=== PATIENT | male | born 1955 | race Caucasian/White ===

== ENCOUNTER 2020-07-03 09:18 | Outpatient (REF) | payer BC, SELFPAY ==
[2020-07-03 10:09] LABS: MANUAL DIFF FLAG NO
[2020-07-03 10:11] LABS: Basophils Absolute Auto 0.1 X10*3/uL (0.0-0.2); Basophils Percent Auto 0.9 % (0-2); Eosinophils Absolute Auto 0.2 X10*3/uL (0.0-0.4); Eosinophils Percent Auto 2.8 % (0-4); Hematocrit 41.3 % (42-52); Hemoglobin 14.1 g/dl (14.0-18.0); Imm Gran Abs Auto 0.03 X10*3/uL (0.00-0.03); Imm Gran Pct Auto 0.4 % (0.0-0.4); Lymphocytes Absolute Auto 1.6 X10*3/uL (1.2-4.9); Lymphocytes Percent Auto 23.7 % (20-40); Mean Corpuscular HGB Conc 34.1 g/dl (31.0-36.0); Mean Corpuscular Hemoglobin 32.9 pg (27.0-33.0); Mean Corpuscular Volume 96.5 fL (80-98); Mean Platelet Volume 8.9 fL (9.4-12.4); Monocytes Absolute Auto 0.5 X10*3/uL (0.1-1.2); Monocytes Percent Auto 7.7 % (2-11); Neutrophils Absolute Auto 4.4 X10*3/uL (2.0-8.3); Neutrophils Percent Auto 64.5 % (45-73); Platelet Count 232 X10*3/uL (160-400); Red Blood Count 4.28 X10*6/uL (4.60-5.80); Red Cell Distribution Width 12.4 % (11.0-16.0); White Blood Count 6.8 X10*3/uL (4.8-10.8)
[2020-07-03 10:38] LABS: Alanine Aminotransferase 27 U/L (0-40); Albumin Level 4.2 g/dL (3.5-5.0); Alkaline Phosphatase 57 U/L (39-117); Anion Gap 10 (12-20); Aspartate Amino Transferase 20 U/L (5-37); Bilirubin Total 0.3 mg/dL (0.0-1.0); Blood Urea Nitrogen 25 mg/dL (9-16); Calcium 8.3 mg/dL (8.4-10.2); Carbon Dioxide 28 mmol/L (22-29); Chloride 106 mmol/L (96-108); Cholesterol 137 mg/dL; Estimated Glomerular Filt Rate > 60; Glucose Fasting 96 mg/dL (60-99); HDL Cholesterol 38 mg/dL; LDL Cholesterol Calculated 89 mg/dl; Potassium 4.4 mmol/l (3.3-5.1); Sodium 140 mmol/L (135-145); Total Protein 6.6 g/dL (6.5-8.0); Triglycerides 53 mg/dL
== END 2020-07-03 09:19 | disposition home or self-care (01) ==
LOC: HO.LAB 09:18
PROVIDERS: PCP Internal Medicine; Visit Provider Physician Assistant
DX: Z00.00 Encounter for general adult medical examination without abnormal findings (principal); Z13.6 Encounter for screening for cardiovascular disorders
CPT/HCPCS: 36415; 80053; 80061; 85025

== ENCOUNTER → 2020-10-29 13:16 | Outpatient (BNVA) | payer BC, SELFPAY | PROVIDERS: Visit Provider Urology ==

== ENCOUNTER 2020-11-19 10:36 | Outpatient (REF) | payer BC, SELFPAY ==
[2020-11-19 15:05] LABS: Prostate Specific Antigen 0.49 ng/mL (<0.05-4.0)
== END 2020-11-19 10:37 | disposition home or self-care (01) ==
LOC: HO.WFDLDS 10:36
PROVIDERS: Visit Provider Urology
DX: N13.8 Other obstructive and reflux uropathy (principal); N32.0 Bladder-neck obstruction; N40.1 Benign prostatic hyperplasia with lower urinary tract symptoms; Z12.5 Encounter for screening for malignant neoplasm of prostate
CPT/HCPCS: 36415; 84153

== ENCOUNTER 2021-06-27 09:20 | Outpatient (REF) | payer BC, SELFPAY ==
[2021-06-27 10:57] LABS: MANUAL DIFF FLAG NO
[2021-06-27 10:59] LABS: Basophils Absolute Auto 0.1 X10*3/uL (0.0-0.2); Basophils Percent Auto 0.9 % (0-2); Eosinophils Absolute Auto 0.1 X10*3/uL (0.0-0.4); Eosinophils Percent Auto 1.6 % (0-4); Hemoglobin 14.6 g/dl (14.0-18.0); Imm Gran Abs Auto 0.03 X10*3/uL (0.00-0.03); Imm Gran Pct Auto 0.5 % (0.0-0.4); Lymphocytes Absolute Auto 1.6 X10*3/uL (1.2-4.9); Lymphocytes Percent Auto 29.3 % (20-40); Mean Corpuscular Hemoglobin 32.7 pg (27.0-33.0); Mean Corpuscular Volume 96.4 fL (80.0-98.0); Mean Platelet Volume 9.7 fL (9.4-12.4); Monocytes Absolute Auto 0.3 X10*3/uL (0.1-1.2); Monocytes Percent Auto 6.2 % (2-11); Neutrophils Absolute Auto 3.38 x10*3/uL (2.0-8.3); Neutrophils Percent Auto 61.5 % (45-73); Platelet Count 234 X10*3/uL (160-400); Red Blood Count 4.46 X10*6/uL (4.60-5.80); Red Cell Distribution Width 12.5 % (11.0-16.0); White Blood Count 5.5 X10*3/uL (4.8-10.8)
[2021-06-27 11:16] LABS: Estimated Average Glucose 100 mg/dL; Hemoglobin A1c % 5.1 %
[2021-06-27 11:38] LABS: Alanine Aminotransferase 23 U/L (0-40); Albumin Level 4.2 g/dL (3.5-5.0); Alkaline Phosphatase 60 U/L (39-117); Anion Gap 12 (12-20); Aspartate Amino Transferase 18 U/L (5-37); Bilirubin Total 0.4 mg/dL (0.0-1.0); Blood Urea Nitrogen 10 mg/dL (9-16); C Reactive Protein 0.05 mg/dL (< or = 0.50); Calcium 8.8 mg/dL (8.4-10.2); Carbon Dioxide 24 mmol/L (22-29); Chloride 109 mmol/L (96-108); Cholesterol 126 mg/dL; Estimated Glomerular Filt Rate > 60; Glucose Fasting 110 mg/dL (60-99); HDL Cholesterol 40 mg/dL; LDL Cholesterol Calculated 69 mg/dl; Potassium 4.2 mmol/L (3.3-5.1); Sodium 141 mmol/L (135-145); Total Protein 6.8 g/dL (6.5-8.0); Triglycerides 87 mg/dL
[2021-06-27 11:46] LABS: Erythrocyte Sedimentation Rate 3 MM/HR (0-15)
[2021-06-27 11:51] LABS: Vitamin D 25-OH Total 27.3 ng/mL (>30)
[2021-06-27 12:02] LABS: Rheumatoid Factor < 15.0 IU/mL (<15.0)
[2021-06-27 12:14] LABS: Folate 9.3 ng/mL (> or = 4.0); Vitamin B12 412 pg/mL (200-900)
[2021-06-28 12:11] LABS: Anti Nuclear Antibody Screen NEGATIVE (NEGATIVE)
== END 2021-06-27 09:21 | disposition home or self-care (01) ==
LOC: HO.MANLDS 09:20
PROVIDERS: PCP Physician Assistant; Visit Provider Physician Assistant
DX: Z00.00 Encounter for general adult medical examination without abnormal findings (principal); G62.9 Polyneuropathy, unspecified
CPT/HCPCS: 36415; 80053; 80061; 82306; 82607; 82746; 83036; 84439; 84443; 85025; 85652; 86038; 86039; 86140; 86431

== ENCOUNTER 2021-12-31 08:34 | Outpatient (REF) | payer BC, SELFPAY ==
[2021-12-31 10:17] LABS: Prostate Specific Antigen 0.48 ng/mL (<0.05-4.0)
== END 2021-12-31 08:35 | disposition home or self-care (01) ==
LOC: HO.LAB 08:34
PROVIDERS: PCP Internal Medicine; Visit Provider Urology
DX: Z12.5 Encounter for screening for malignant neoplasm of prostate (principal); R35.1 Nocturia
CPT/HCPCS: 36415; 84153

== ENCOUNTER → 2022-01-06 14:13 | Outpatient (BNVA) | payer BC, SELFPAY | PROVIDERS: PCP Internal Medicine; Visit Provider Urology | DX: N32.0 Bladder-neck obstruction (principal); R39.12 Poor urinary stream | CPT/HCPCS: 51798 ==

== ENCOUNTER 2022-08-03 10:22 | Outpatient (REF) | payer BC, SELFPAY ==
--- NOTE | ~2022-08-03 | XR_ITS ---
EXAMINATION: XR SHOULDER, RIGHT CLINICAL INFORMATION: Right shoulder pain COMPARISON: None TECHNIQUE: Three views of the right shoulder. FINDINGS: No fracture or dislocation. The glenohumeral joint is aligned with prominent osteophytes present. The acromioclavicular joint is intact with mild hypertrophic degenerative change. The visualized lung is clear. The visualized ribs are intact. XR/XR shoulder RT min 2V IMPRESSION: Moderate degenerative changes of the right glenohumeral joint.
== END 2022-08-03 10:23 | disposition home or self-care (01) ==
LOC: HO.HOSX 10:22
PROVIDERS: Visit Provider Physician Assistant
DX: M19.011 Primary osteoarthritis, right shoulder (principal); S46.001A Unspecified injury of muscle(s) and tendon(s) of the rotator cuff of right shoulder, initial encounter
CPT/HCPCS: 20610; 73030; J1040

== ENCOUNTER 2022-08-04 07:00 | Outpatient (REF) | payer BC, SELFPAY ==
[2022-08-04 07:05] LABS: MANUAL DIFF FLAG NO
[2022-08-04 07:25] LABS: Basophils Percent Auto 0.4 % (0-2); Eosinophils Absolute Auto 0.1 X10*3/uL (0.0-0.4); Eosinophils Percent Auto 0.6 % (0-4); Hematocrit 44.7 % (42.0-52.0); Hemoglobin 15.2 g/dl (14.0-18.0); Imm Gran Abs Auto 0.04 X10*3/uL (0.00-0.03); Imm Gran Pct Auto 0.4 % (0.0-0.4); Lymphocytes Absolute Auto 2.2 X10*3/uL (1.2-4.9); Lymphocytes Percent Auto 21.6 % (20-40); Mean Corpuscular Hemoglobin 32.1 pg (27.0-33.0); Mean Corpuscular Volume 94.3 fL (80.0-98.0); Monocytes Absolute Auto 0.7 X10*3/uL (0.1-1.2); Monocytes Percent Auto 6.9 % (2-11); Neutrophils Percent Auto 70.1 % (45-73); Platelet Count 270 X10*3/uL (160-400); Red Blood Count 4.74 X10*6/uL (4.60-5.80); Red Cell Distribution Width 12.4 % (11.0-16.0)
[2022-08-04 08:22] LABS: Alanine Aminotransferase 29 U/L (0-40); Albumin Level 4.3 g/dL (3.5-5.0); Alkaline Phosphatase 89 U/L (39-117); Anion Gap 12 (12-20); Aspartate Amino Transferase 22 U/L (5-37); Bilirubin Total 0.4 mg/dL (0.0-1.0); Blood Urea Nitrogen 16 mg/dL (9-16); Calcium 9.5 mg/dL (8.4-10.2); Carbon Dioxide 25 mmol/L (22-29); Chloride 108 mmol/L (96-108); Cholesterol 149 mg/dL; Estimated Glomerular Filt Rate > 60; Glucose Random 123 mg/dL (60-115); HDL Cholesterol 40 mg/dL; LDL Cholesterol Calculated 91 mg/dl; Potassium 4.7 mmol/L (3.3-5.1); Prostate Specific Antigen 0.58 ng/mL (<0.05-4.0); Sodium 140 mmol/L (135-145); Total Protein 6.9 g/dL (6.5-8.0); Triglycerides 91 mg/dL
== END 2022-08-04 07:01 | disposition home or self-care (01) ==
LOC: HO.LAB 07:00
PROVIDERS: PCP Internal Medicine; Visit Provider Physician Assistant
DX: Z00.00 Encounter for general adult medical examination without abnormal findings (principal); Z12.5 Encounter for screening for malignant neoplasm of prostate
CPT/HCPCS: 36415; 80053; 80061; 84153; 85025

== ENCOUNTER 2022-10-05 10:29 | Outpatient (REF) | payer MEDICARE, BC, SELFPAY ==
--- NOTE | ~2022-10-05 | MR_ITS ---
EXAMINATION: MR SHOULDER WITHOUT CONTRAST, RIGHT CLINICAL INFORMATION: Right shoulder pain, osteoarthritis. COMPARISON: Radiographs 08/03/2022. TECHNIQUE: MRI of the shoulder without contrast was performed on a high-field scanner. FINDINGS: ROTATOR CUFF: Supraspinatus tendinosis with a near complete insertional tear with the bulk of the tendon retracted 1.3 cm. There are some posteriormost fibers remaining intact, with mild, ill-defined undersurface partial tearing of the distal infraspinatus tendon. Subscapularis tendon is attenuated compatible with chronic undersurface partial tearing. No muscle atrophy or fatty infiltration. BICEPS: The biceps tendon is completely torn and retracted. CORACOACROMIAL ARCH: The undersurface of the acromion is curved with prominent subacromial spurring. Moderate acromioclavicular osteoarthritis with a joint effusion. LABRUM/CAPSULE: Superior labrum is blunted and diminutive. GLENOHUMERAL JOINT/MARROW: Degenerative spurring along the greater tuberosity with a prominent cyst posteriorly. Cartilage signal heterogeneity and mild surface irregularity along the medial aspect of the humeral head. Cartilage thinning and surface irregularity of the superior glenoid. There are prominent marginal osteophytes, particularly the inferomedial aspect of the humeral head and neck junction. Small joint effusion. MR/MR shoulder RT wo con IMPRESSION: 1. Near complete insertional tear of the supraspinatus tendon. 2. Mild ill-defined undersurface partial tearing of the distal infraspinatus tendon. 3. Chronic undersurface partial tearing of the subscapularis tendon. 4. Completely torn and retracted biceps tendon. 5. Prominent subacromial spur. 6. Moderate acromioclavicular and glenohumeral osteoarthritis.
== END 2022-10-05 10:30 | disposition home or self-care (01) ==
LOC: HO.MRI 10:29
PROVIDERS: Visit Provider Physician Assistant
DX: M19.011 Primary osteoarthritis, right shoulder (principal); S46.001A Unspecified injury of muscle(s) and tendon(s) of the rotator cuff of right shoulder, initial encounter
CPT/HCPCS: 73221

== ENCOUNTER → 2022-10-27 09:36 | Outpatient (BNVA) | payer BC, SELFPAY | PROVIDERS: PCP Internal Medicine; Visit Provider Orthopaedic Surgery | DX: M12.811 Other specific arthropathies, not elsewhere classified, right shoulder (principal) | CPT/HCPCS: 99212 ==

== ENCOUNTER → 2022-12-15 12:28 | Outpatient (BNVA) | payer BC, SELFPAY | PROVIDERS: PCP Internal Medicine; Visit Provider Physician Assistant | DX: Z13.89 Encounter for screening for other disorder (principal) ==

== ENCOUNTER 2022-12-20 07:26 | Day surgery (SDC) | payer BC, SELFPAY ==
[2022-12-18 10:54] VITALS: BMI 31.4
--- NOTE | 2022-12-19 08:33 | P.CONAN_ITS ---
Documented by User: Crissy Bourne NP 12/19/22 08:34 HPI - Anesthesia Eval Consult details Narrative: 67yo M for Right Arthroscopic Rotator Cuff Repair PMFSH Active Problems Active Problems: All Active Problems (Updated 12/18/22 @ 10:47 by Aydee Garcia RN) Bladder outlet obstruction (Acute) Arthritis of right shoulder region (Acute) Rotator cuff injury (Acute) Rotator cuff arthropathy of right shoulder (Acute) Weak urinary stream (Acute) Nocturia (Acute) Past Medical History Medical History (Updated 12/18/22 @ 10:47 by Aydee Garcia, CINTIA) History of BPH Nocturia ROM on CPAP PONV (postoperative nausea and vomiting) Recurrent right inguinal hernia Weak urinary stream Family History Family History Father Heart disease Mother Chronic obstructive pulmonary disease Surgical History Surgical History (Updated 12/18/22 @ 10:12 by Aydee Garcia RN) History of arthroscopy of left knee History of hernia repair History of tonsillectomy History of total left knee replacement (TKR) History of total right knee replacement (TKR) Hx of colonoscopy Social History Social History Are you a primary neonatal intensive care nurse to a significant other at home: No Do you presently have visiting nurse or other home services: No Are you DNR?: No Advance Directives: No Advance Directives Information Provided: Yes Advance Directives on File: No Advance Directives Date on File: 11/08/14 Recently lost weight without trying: No Nutrition Risks: No Nutritional Risk 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 Allergies Allergy/AdvReac Type Severity Reaction Status Date / Time No Known Allergies Allergy Verified 12/18/22 10:47 [No Known Allergies*] Exam Exam Date and Time: December 19, 2022 0833 Height,Weight and Vital Signs: Height 6 ft 2 in Weight 111.13 kg Pertinent Lab Results Pertinent Lab Results: Laboratory Tests 08/04/22 08/04/22 07:04 07:04 WBC 10.0 Hgb 15.2 Hct 44.7 Plt Count 270 Sodium 140 Potassium 4.7 Chloride 108 Carbon Dioxide 25 BUN 16 Creatinine 0.95 Assessment and Plan Assessment Anesthesia Assessment: Chart Reviewed Documented by User: Aba Alvarado MD 12/20/22 07:31 [facility] Past Medical History Medical History (Updated 12/18/22 @ 10:47 by Aydee Garcia RN) History of BPH Nocturia ROM on CPAP PONV (postoperative nausea and vomiting) Recurrent right inguinal hernia Weak urinary stream Family History Family History Father Heart disease Mother Chronic obstructive pulmonary disease Family history of problems with anesthesia: No Surgical History Surgical History (Updated 12/18/22 @ 10:12 by Aydee Garcia RN) History of arthroscopy of left knee History of hernia repair History of tonsillectomy History of total left knee replacement (TKR) History of total right knee replacement (TKR) Hx of colonoscopy History of Problems with Anesthesia: No Social History Social History Are you a primary neonatal intensive care nurse to a significant other at home: No Do you presently have visiting nurse or other home services: No Are you DNR?: No Advance Directives: No Advance Directives Information Provided: Yes Advance Directives on File: No Advance Directives Date on File: 11/08/14 Recently lost weight without trying: No Nutrition Risks: No Nutritional Risk 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 Allergies Allergy/AdvReac Type Severity Reaction Status Date / Time No Known Allergies Allergy Verified 12/18/22 10:47 [No Known Allergies*] Exam Airway Mallampati Class: II TM Dist: >3cm Neck ROM: Limited Heart: rrr Lungs: cta Assessment and Plan Assessment Anesthesia Assessment: Anesthesia Plan Discussed Final Anesthetic Review Family History of Problems with Anesthesia: No History of Problems with Anesthesia: No NPO: Yes ASA Class: II Final Preanesthetic Review: No Changes in Pt Med Stat, Meds/Allgs Chart Reviewed, Consent Obtained/Reviewed and Anes Risks/Benef Reviewed Patient Risk: Intermediate Procedure Risk: Intermediate Anesthetic Plan Anesthetic Plan: GA and Regional Block Disposition: Standard PACU
[2022-12-20] VITALS (9 sets, daily range): BP systolic 142–170; BP diastolic 75–88; PULSE 51–63; RESP 12–18; TEMP 36.1–36.4; O2SAT 93–99; BMI 31.4
[2022-12-20] MEDS: Lactated Ringers 1,000 ML 100 ML IVCONT (08:14)
[2022-12-20] MEDS: Scopolamine 1.5 MG PATCH.TD.3 TRANSDERMA (08:16)
--- NOTE | 2022-12-20 09:28 | MHC.SHP ---
Pre-Procedural Eval Section A Date of Service: 12/20/22 The patient is an INPATIENT: No Changes since office visit: No Cold of Flu in the past 2 weeks, No New Medical Problems, No Changes in Medication and No Patient answered all questions The History & Physical has been completed within 30 days and I have reviewed it.: Yes Section B Chief Complaint: Chronic postrheumatic arthropathy [Jaccoud], right Allergies: Allergies Allergy/AdvReac Type Severity Reaction Status Date / Time No Known Allergies Allergy Verified 12/18/22 10:47 [No Known Allergies*] Plan I have reviewed the history and physical and performed a pertinent physical examination on my patient. No changes have occurred unless specified. Time Spent With Patient Time: Total time managing care of this patient today ____ minutes.
--- NOTE | 2022-12-20 11:45 | P.BOP_ITS ---
Brief Operative Note Date of Service: 12/20/22 Pre-op diagnosis: right shoulder RTC tear Post-op diagnosis: other (1) RTC repair 2) labral tear) Procedure: 1) RTC repair 2) DCE 3) Circumferential labral debridement 4) SAD Implants: Tavares and nephew 5.5 knotless x2 and helacoil double loaded medial row anchors x 2 Surgeon: Ric Dominguez MD Anesthesia: GETA and regional Was an Crm Marketing Executive used for this Procedure?: Yes Crm Marketing Executive: Crista Queen Estimated blood loss (mL): 25 IV fluids (mL): 1,100 Pathology: none sent Condition: stable Disposition: PACU
--- NOTE | 2022-12-26 09:05 | P.OP_ITS ---
Operative Note Operative Note Date of Service: 12/20/22 Narrative: Date of Service: 12/20/22 Pre-op diagnosis: right shoulder RTC tear Post-op diagnosis: other (1) RTC repair 2) labral tear) Procedure: 1) RTC repair 2) DCE 3) Circumferential labral debridement 4) SAD Implants: Tavares and nephew 5.5 knotless x2 and helacoil double loaded medial row anchors x 2 Surgeon: Ric Dominguez MD Anesthesia: GETA and regional Was an Marking Machine Operator used for this Procedure?: Yes Marking Machine Operator: Crista Queen Estimated blood loss (mL): 25 IV fluids (mL): 1,100 Pathology: none sent Condition: stable Disposition: PACU Procedure in detail: Patient was brought to the operating room and placed the the beach chair position. All bony prominences were well padded and the limb was prepped and draped in standard sterile fashion. A time out was called to identify proper site, proper procedure and proper surgeon. IV antibiotics per weight were administered. I began by making a posterolateral stab incision with a 15 blade. A blunt trochar was placed into the glenohumeral joint and I insufflated the carlos nt with saline and a 30 degree arthroscope was placed. I established an outside- in anterior portal just distal to the biceps tendon. I then began my inspection of the glenohumeral joint. There was an absent biceps and degenerative tearing of the labrum circumferentially with G2 change at the inferior glenoid without associated humeral head changes. There was a full thickness undersurface RTC tear. The subcapularis was partially intct with a high grade partial thickness tear of the proximal 50%. I debrided the loose cartilage of the glenoid and the degenerative labral tearing circumferentially. I thenreleased the subscapularis in all planes except inferior and then placed 2 suture tapes and brought these to a knotless 5.5 anchor just lateral to the bicipital groove. Prior to this I debrided the oinsertion site down to bleeding bone. The [id number] was repaired with the arm in IR. I then removed the trochar and entered the subacromial space. A direct lateral portal was then established and I performed a bursectomy. The cuff was then examined. There was a full thickness tear of the supra and infraspinatus with mild retraction but mobile. I placed two medial row double loaded anchors and then brought the suture tape through the medial cuff. I added two looped sutures at the anterior and posterior most aspect of the tear. I then debrided the bare area down to bleeding bone and, using a cross bridge configuration, brought three limbs to each of two lateral 5.0 anchors. This re-approximated the cuff anatomy near anatomically. I then performed a 5 mm subacromial decompression. A DCE was performed via the anterior portal. Once I was satisfied with the repair the final images were captured and I removed all instrumentation. Portals were closed with nylon. Patient was placed in an abduction sling, extubated and brought to the recovery room in stable condition. There were no known complications.
== END 2022-12-20 14:28 | disposition home or self-care (01) ==
LOC: HO.SSS 07:26
PROVIDERS: PCP Internal Medicine; Visit Provider Orthopaedic Surgery
PROC: (CPT 29827; principal; 2022-12-20 09:40)
DX: M12.011 Chronic postrheumatic arthropathy [Jaccoud], right shoulder (principal); M75.101 Unspecified rotator cuff tear or rupture of right shoulder, not specified as traumatic; M24.211 Disorder of ligament, right shoulder; G47.33 Obstructive sleep apnea (adult) (pediatric); Z99.89 Dependence on other enabling machines and devices; Z96.653 Presence of artificial knee joint, bilateral
CPT/HCPCS: 29827; 29826; 29823; C1713; J0171; J0690; J1100; J1885; J2405; J2550; J2795

== ENCOUNTER → 2022-12-25 09:06 | Outpatient (BNVA) | payer BC, SELFPAY | PROVIDERS: PCP Internal Medicine; Visit Provider Physician Assistant | DX: Z47.89 Encounter for other orthopedic aftercare (principal); Z98.890 Other specified postprocedural states | CPT/HCPCS: 99212 ==

== ENCOUNTER 2023-01-08 13:02 | Outpatient (REF) | payer BC, SELFPAY ==
[2023-01-08 15:33] LABS: Prostate Specific Antigen 0.75 ng/mL (<0.05-4.0)
== END 2023-01-08 13:03 | disposition home or self-care (01) ==
LOC: HO.LAB 13:02
PROVIDERS: PCP Internal Medicine; Visit Provider Urology
DX: Z12.5 Encounter for screening for malignant neoplasm of prostate (principal); N13.8 Other obstructive and reflux uropathy; N40.1 Benign prostatic hyperplasia with lower urinary tract symptoms; N32.0 Bladder-neck obstruction
CPT/HCPCS: 36415; 84153

== ENCOUNTER → 2023-01-16 10:37 | Outpatient (BNVA) | payer BC, SELFPAY | PROVIDERS: PCP Internal Medicine; Visit Provider Urology ==

== ENCOUNTER → 2023-01-29 11:03 | Outpatient (BNVA) | payer BC, SELFPAY | PROVIDERS: PCP Internal Medicine; Visit Provider Physician Assistant ==

== ENCOUNTER 2023-03-15 11:13 | Outpatient (AMB) | payer BC, SELFPAY ==
--- NOTE | 2023-03-15 11:18 | A.OFFVIS_ITS ---
Intake Vital Signs 03/15/23 11:20 Height 6 ft 2 in Intake Visit Reasons: OV- Rt RTC Repair 12/20/22 NE Intake Note: Ty is a 67 year old male who presents today with his for his post op appointment for his right RTC repair, 12/20/22 NE.Patient reports that he is doing well with no concerns, He is still working with physical therapy. Allergies No Known Allergies [No Known Allergies*] Allergy (Verified 01/29/23 11:18) HPI OV- Rt RTC Repair 12/20/22 NE HPI Details Ty is a 67 year old man who presents ~3 months S/P right RTC repair, DCE, SAD, & Circumferential labral debridement. He says he is doing well and denies any pain. He continues to work with PT He says he is returning to work on 03/19/23, at a [employer]. He will not be required to do any heavy lifting at work. [facility] Medical History History of BPH Nocturia ROM on CPAP PONV (postoperative nausea and vomiting) Recurrent right inguinal hernia Weak urinary stream Surgical History History of arthroscopy of left knee History of hernia repair History of tonsillectomy History of total left knee replacement (TKR) History of total right knee replacement (TKR) Hx of colonoscopy Family History Father Heart disease Mother Chronic obstructive pulmonary disease Social History Are you a primary health care aide to a significant other at home: No Do you presently have visiting nurse or other home services: No Advance Directives Date on File: 11/08/14 Current occupation: rt hand/ counter sales/ retails Review of Systems Const All systems reviewed & are unremarkable except as noted in HPI and below Physical Exam Const General: no acute distress and alert Orientation/consciousness: patient oriented x3 Neuro General: patient oriented x3 Extrem Other: Right Shoulder: 120 degrees combined overhead motion, limited Minimal pain Well-healed portals ER ~30 degrees - liftoff Psych Appearance: grossly normal Affect: normal affect Attitude: cooperative Assessment & Plan Assessment & Plan (1) S/P right rotator cuff repair: Comment: Right shoulder rotator cuff repair with circumferential labral debridement, DCE, and SAD; 12/20/2022 NE Code(s): Z98.890 - Other specified postprocedural states Plan: This is a 67 year old man S/P right subscapularis & superior cuff repair, DCE, SAD, & Circumferential labral debridement, DOS: 12/20/22. He is doing well, within expectation, and denies any pain. He continues to work with PT and perform at-home exercises. I recommend he continue with his home exercises and avoid any heavy lifting activities. He will follow up in 3 months. Plan Scribed for Ric Dominguez MD by Ramon Pelletier, medical office receptionist assistant, on 03/15/23 at 11:25 AM, EST. Coding Level of Care Code Global (12824) Diagnoses S/P right rotator cuff repair Z98.890
== END 2023-03-15 11:33 | disposition home or self-care (01) ==
PROVIDERS: PCP Internal Medicine; Visit Provider Orthopaedic Surgery
DX: Z98.890 Other specified postprocedural states (principal)
CPT/HCPCS: 99024

== ENCOUNTER → 2023-03-15 11:13 | Outpatient (BNVA) | payer BC, SELFPAY | PROVIDERS: PCP Internal Medicine; Visit Provider Orthopaedic Surgery ==

== ENCOUNTER 2023-03-22 16:00 | Outpatient (RCR) | payer BC, SELFPAY ==
--- NOTE | 2022-12-26 10:34 | MHC.PT.EP ---
[facility] [place] Office [place] Office [place] Office [address] Ashly Vasquez [address] [phone] F: [phone] F: [phone] F: [phone] F: [phone] Physical Therapy Plan of Care Date of Evaluation: Date of Surgery: 12/20/22 Diagnosis: Other specified post procedural states s/p R rotator cuff repair 12/20/22 Assessment: Pt is a pleasant 67yo M who presents to PT s/p R RTC repair with Dr. Dominguez on 12/20/22. He presents to PT with expected impairments of pain, decreased R shoulder ROM, decreased strength, and soft tissue restrictions. He is limited functionally by R UE movement including lifting, reaching, ADLs, and sleeping. He is an excellent candidate for skilled PT in order to address current impairments. He is recommended to be seen 2x/week for 12 weeks in order to progress per protocol to facilitate return to PLOF. Frequency and Duration: The patient will be seen 2x/week for 12 weeks Short Term Goals: Pt will be I with HEP to promote self management of symptoms Pt will improve R shoulder PROM flexion to 130 deg by week 3 per protocol Pt will achieve ER to 30 degrees at 45 deg ABD per protocol (specifically subscap protocol) by week 5 Food Safety Director Goals: Pt will achieve full ROM all planes of R shoulder by week 8 per protocol Pt will demonstrate ability to lift 1# object to shoulder height by week 11 per protocol Pt will achieve full ROM and strength throughout R shoulder by week 13 per protocol Treatment Plan: Modalities to reduce pain, spasms and effusion. Manual therapy to restore motion and function. Therapeutic exercise to improve strength and flexibility. Neuromuscular re-education for posture and balance. Therapeutic activities to return to functional activities of daily living. Electronically signed by: Faye Treviño, PT, DPT Please sign and return to therapist. Thank you for your referral.
--- NOTE | 2023-03-28 14:33 | MHC.PT.DC ---
[facility] [place] Office [place] Office [place] Office [address] Ashly Vasquez [address] [phone] F: [phone] F: [phone] F: [phone] F: [phone] Physical Therapy Discharge Report Diagnosis: Other specified post procedural states s/p R rotator cuff repair 12/20/22 Date of Surgery: 12/20/22 Date of Evaluation: 12/25/22 Date of Discharge: 03/28/23 Treatments to Date: 28 Cancellations to Date: No Shows to Date: Discharge Status: Achieved Goals Improved Function Independent with HEP Discharge Summary: Pt was seen for PT from 12/25/22-03/22/23. His last attended and scheduled appointment was 03/22/23. He made excellent progress since SOC and progressed well per protocols. He scored 6/130 on SPADI outcome measure at last session. He improved AROM all planes of R shoulder to WFL. He also continues to improve strength of all planes of R shoulder. He is I and extremely compliant with HEP. He is being D/C from skilled PT. Pt had no further questions or concerns for PT at last session. Electronically signed by: Faye Treviño, PT, DPT Please sign and return to therapist. Thank you for your referral.
== END 2023-03-28 14:34 | disposition home or self-care (01) ==
LOC: HO.PT 16:00
PROVIDERS: Visit Provider Physician Assistant
DX: Z98.890 Other specified postprocedural states (principal)
CPT/HCPCS: 97110; 97140; 97162; 97164; 97530

== ENCOUNTER 2023-06-11 14:47 | Outpatient (AMB) | payer OTHER, SELFPAY ==
--- NOTE | 2023-06-11 14:49 | A.OFFVIS_ITS ---
Intake Intake Visit Reasons: OV-Rt RTC Repair 12/20/22 NE-F/U Intake Note: Ty is a 67 year old male who presents today with his for a follow up for his right RTC repair, 12/20/22 NE. Patient reports minimal pain at this time. Allergies No Known Allergies [No Known Allergies*] Allergy (Verified 06/11/23 14:52) Medication List - Last Reconciled 06/11/23 by Alvina Ramos RN finasteride 5 mg PO DAILY 90 days oxycodone 5 mg PO Q4-6H PRN 7 days terazosin 10 mg PO BEDTIME 90 days HPI OV-Rt RTC Repair 12/20/22 NE-F/U HPI Details Ty is a 67 year old man who presents ~6 months S/P right RTC repair, DCE, SAD, & Circumferential labral debridement. He says he is doing well and has only minimal pain, which is tolerable. 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 [facility] Medical History PONV (postoperative nausea and vomiting) History of BPH ROM on CPAP Nocturia Weak urinary stream Recurrent right inguinal hernia Surgical History History of total left knee replacement (TKR) History of total right knee replacement (TKR) Hx of colonoscopy History of tonsillectomy History of arthroscopy of left knee History of hernia repair Family History Father Heart disease Mother Chronic obstructive pulmonary disease Social History Are you a primary critical care registered nurse to a significant other at home: No Do you presently have visiting nurse or other home services: No Advance Directives Date on File: 11/08/14 Current occupation: rt hand/ counter sales/ retails Review of Systems Const All systems reviewed & are unremarkable except as noted in HPI and below Physical Exam Const General: no acute distress and alert Orientation/consciousness: patient oriented x3 HEENT Head: Yes normocephalic and Yes atraumatic Eyes EOM: EOMs intact bilaterally Resp Effort & Inspection: normal respiratory effort and able to speak in complete sentences Cardio Jugular venous distension: no JVD Skin General skin exam: turgor normal Rashes: no rashes Neuro General: patient oriented x3 Extrem Other: Right Shoulder: 120 degrees combined overhead motion, limited Minimal pain Well-healed portals ER ~30 degrees - liftoff Psych Appearance: grossly normal Affect: normal affect Attitude: cooperative Assessment & Plan Assessment & Plan (1) S/P right rotator cuff repair: Comment: Right shoulder rotator cuff repair with circumferential labral debridement, DCE, and SAD; 12/20/2022 NE Code(s): Z98.890 - Other specified postprocedural states Plan: This is a 67 year old man S/P right subscapularis & superior cuff repair, DCE, SAD, & Circumferential labral debridement, DOS: 12/20/22. He is doing well, within expectation, and has only minimal pain, which is tolerable. He continues to perform at-home exercises and has completed his course of PT. I recommend he continue his activity as tolerated and avoid any heavy lifting. He will follow up should he have any concerns. Plan Scribed for Ric Dominguez MD by Ramon Pelletier, medical reimbursement specialist, on [ ] at [ ], EST. Coding Level of Care Code Est Pt Level 3 (81941) Diagnoses S/P right rotator cuff repair Z98.890
== END 2023-06-11 14:59 | disposition home or self-care (01) ==
PROVIDERS: PCP Internal Medicine; Visit Provider Orthopaedic Surgery
DX: M25.511 Pain in right shoulder (principal)
CPT/HCPCS: 99213

== ENCOUNTER → 2023-06-11 14:47 | Outpatient (BNVA) | payer OTHER, SELFPAY | PROVIDERS: PCP Internal Medicine; Visit Provider Orthopaedic Surgery ==

== ENCOUNTER 2024-01-10 13:22 | Outpatient (REF) | payer MEDICARE, SELFPAY ==
[2024-01-10 15:00] LABS: Prostate Specific Antigen 0.61 ng/mL (<0.05-4.0)
== END 2024-01-10 13:23 | disposition home or self-care (01) ==
LOC: HO.LAB 13:22
PROVIDERS: PCP Internal Medicine; Visit Provider Urology
DX: N32.0 Bladder-neck obstruction (principal); Z12.5 Encounter for screening for malignant neoplasm of prostate
CPT/HCPCS: 36415; 84153

== ENCOUNTER 2024-01-16 09:11 | Outpatient (AMB) | payer BC, SELFPAY ==
--- NOTE | 2024-01-16 09:13 | A.OFFVIS_ITS ---
Intake Visit Reasons: 1Y PSA(set) Intake Note: Patient presents today for a follow-up on PSA: Meds- Finasteride & Terazosin Allergies to Antibiotic- No Known Allergies Blood Thinner- None Quick Mixer Operator Required: No Accompanied by: Self / Same As Patient Allergies No Known Allergies [No Known Allergies*] Allergy (Verified 01/16/24 09:14) HPI Comments Details: Ty is a pleasant male. He is a patient of Dr Cruz. He seen for the following urologic conditions - lower urinary tract symptoms Yearly evaluation Continues to remain on combination therapy PSA low Nocturia x1 Try reduction to terazosin 5 mg May also back off finasteride to Sunday, Sunday, Sunday Twelve month follow-up Lower urinary tract symptoms On combination therapy terazosin 10 mg and finasteride 5 mg Good response Nocturia down from 3 to 4 to 1 Happy with stream Prior therapy includes combination terazosin 10 mg and finasteride 5 mg PSA 2018 1.2, 01/15 0.5, 01/16 0.75, 01/17 0.61 Plan to review in 1 year and repeat PSA [facility] Medical History PONV (postoperative nausea and vomiting) History of BPH ROM on CPAP Nocturia Weak urinary stream Recurrent right inguinal hernia Surgical History History of total left knee replacement (TKR) History of total right knee replacement (TKR) Hx of colonoscopy History of tonsillectomy History of arthroscopy of left knee History of hernia repair Family History Father Heart disease Mother Chronic obstructive pulmonary disease Social History Are you a primary care professional to a significant other at home: No Do you presently have visiting nurse or other home services: No Advance Directives Date on File: 11/08/14 Current occupation: rt hand/ counter sales/ retails Review of Systems Const Denies chills and Denies fever(s) Card Reports no additional complaints and Denies syncope Resp Denies cough GI Denies abdominal pain and Denies heartburn Reports as per HPI and Denies change in libido Neuro Denies syncope Psych Denies change in libido Endo Denies change in libido Physical Exam Const General: cooperative, healthy appearing, comfortable and no acute distress Orientation/consciousness: patient oriented x3 HEENT Face and sinus: Yes normal facial exam Mouth: moist mucous membranes Neck Neck: Yes normal visual inspection, Yes full ROM and Yes trachea midline Chest Chest palpation & inspection: normal inspection of the chest Resp Effort & Inspection: normal respiratory effort, able to speak in complete sentences and no respiratory distress GI Inspection: Yes normal to inspection Back/Spine/Pelvis Cervical Spine: normal cervical lordosis Thoracic/Lumbar Spine: thoracic and lumbar spine normal to inspection Skin General skin exam: no rashes or lesions noted Neuro General: patient oriented x3, gait normal, tone normal and moves all extremities Extrem General: Yes normal to inspection and Yes capillary refill normal Assessment & Plan Assessment & Plan (1) Bladder outlet obstruction: Code(s): N32.0 - Bladder-neck obstruction Category: Medical (2) Weak urinary stream: Code(s): R39.12 - Poor urinary stream Category: Medical (3) Nocturia: Code(s): R35.1 - Nocturia Category: Medical Plan Twelve month follow-up PVR and AUA score Medications: New terazosin 5 mg PO BEDTIME 30 caps 1RF 30 days N40.1 - Benign prostatic hyperplasia with lower urinary tract symptoms, R35.0 - Frequency of micturition, R39.12 - Poor urinary stream Patient Instructions: Imaging studies, laboratory and physical exam results were discussed and reviewed in detail. No major barriers to patient understanding were identified. An opportunity to ask questions regarding the treatment plan was provided. All questions were answered. The patient expressed understanding and agreement with the above treatment plan. The patient is aware they should contact our office by phone for worsening of their current condition or the appearance of new urologic symptoms. Compliance is encouraged with any medications and followup testing that is ordered. It is a privilege to participate in the urologic care of your patient. If you have any questions or concerns regarding treatment for the above conditions, or other urologic issues, please do not hesitate to contact me. The office telephone contact is [phone]. This note is constructed using voice recognition software. While every effort has been made to ensure accuracy stone sawyer errors may have been included. Yours sincerely, Dr Jony Umana MD, [facility] - Urology Providers of Expert, Compassionate Care for the Genitourinary System Coding Level of Care Code Est Pt Level 3 (24033) Diagnoses Bladder outlet obstruction N32.0 Weak urinary stream R39.12 Nocturia R35.1
== END 2024-01-16 09:28 | disposition home or self-care (01) ==
PROVIDERS: PCP Internal Medicine; Visit Provider Urology
DX: N32.0 Bladder-neck obstruction (principal); R39.12 Poor urinary stream; R35.1 Nocturia
CPT/HCPCS: 99213

== ENCOUNTER → 2024-01-16 09:11 | Outpatient (BNVA) | payer BC, SELFPAY | PROVIDERS: Visit Provider Urology | DX: N40.1 Benign prostatic hyperplasia with lower urinary tract symptoms (principal); N13.8 Other obstructive and reflux uropathy; R39.12 Poor urinary stream; R35.1 Nocturia | CPT/HCPCS: 99212 ==

== ENCOUNTER 2024-06-27 07:26 | Day surgery (SDC) | payer MEDICARE, SELFPAY ==
[2024-06-25 13:58] VITALS: BMI 34.3
[2024-06-27 07:55] VITALS: BMI 33.5
[2024-06-27 08:00] VITALS: BP 139/89; PULSE 92; RESP 16; TEMP 36.8; O2SAT 97
[2024-06-27] MEDS: Lactated Ringers 1,000 ML 80 ML IVCONT (08:23)
--- NOTE | 2024-06-27 08:41 | HO.ANESPROP2 ---
HPI - Anesthesia Eval Consult details Narrative: 68 yo M presenting for colonoscopy. Hx of PONV. PMFSH Active Problems Active Problems: All Active Problems S/P right rotator cuff repair (Acute) Rotator cuff arthropathy of right shoulder (Acute) Rotator cuff injury (Acute) Arthritis of right shoulder region (Acute) Bladder outlet obstruction (Acute) Weak urinary stream (Acute) Nocturia (Acute) Past Medical History Medical History (Updated 06/25/24 @ 13:55 by Jazzy Iniguez, RN) BPH (benign prostatic hyperplasia) PONV (postoperative nausea and vomiting) ROM on CPAP Nocturia Weak urinary stream Family History Family History Father Heart disease Mother Chronic obstructive pulmonary disease Family history of problems with anesthesia: No Surgical History Surgical History (Updated 06/25/24 @ 13:54 by Jazzy Iniguez RN) Hx of rotator cuff surgery History of total left knee replacement (TKR) History of total right knee replacement (TKR) Hx of colonoscopy History of tonsillectomy History of arthroscopy of left knee History of hernia repair History of Problems with Anesthesia: Yes (PONV) Social History Social History Are you a primary respiratory care instructor to a significant other at home: No Do you presently have visiting nurse or other home services: No Patient Tobacco Use Status: Never used Tobacco Use of substances other than those prescribed or required for medical reasons: No Are you DNR?: No Advance Directives: No Advance Directives Information Provided: Yes Advance Directives Date on File: 11/08/14 Recently lost weight without trying: No Nutrition Risks: No Nutritional Risk Poor oral hygiene: No 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 Allergies Allergy/AdvReac Type Severity Reaction Status Date / Time No Known Allergies Allergy Verified 01/16/24 09:14 [No Known Allergies*] Active Medications: Current Medications Lactated Ringer's (Lr) 1,000 mls @ 80 mls/hr IVCONT .[id number] [facility] Last Admin: 06/27/24 08:23 Dose: 80 mls/hr Sodium Biphosphate/Sodium Phosphate (Sodium Phosphate,Cochise-Dibasic 133 Ml Enema) 133 ml [place] ONCE PRN PRN Reason: Poor Colonoscopy Prep Results Exam Exam Date and Time: 06/27/24 0835 Height,Weight and Vital Signs: Height 6 ft 2 in Weight 118.501 kg Last Vital Signs Temp 98.2 F 06/27/24 08:00 Pulse 92 06/27/24 08:00 Resp 16 06/27/24 08:00 BP 139/89 06/27/24 08:00 Pulse Ox 97 06/27/24 08:00 O2 Del Method Room Air 06/27/24 08:00 Airway Mallampati Class: II TM Dist: <=3cm Neck ROM: Limited Loose/Missing/Broken Teeth: Yes (severeal missing teeth but nothing loose or broken) Heart: S1S2 Lungs: CTAB Assessment and Plan Assessment Anesthesia Assessment: Anesthesia Plan Discussed and Chart Reviewed Final Anesthetic Review Family History of Problems with Anesthesia: No History of Problems with Anesthesia: Yes (PONV) NPO: Yes ASA Class: II Final Preanesthetic Review: No Changes in Pt Med Stat, Meds/Allgs Chart Reviewed, Consent Obtained/Reviewed and Anes Risks/Benef Reviewed Patient Risk: Low Procedure Risk: Low Anesthetic Plan Anesthetic Plan: MAC: and Agree w/ Assess. and Plan Disposition: Standard PACU
[2024-06-27 09:55] VITALS: BP 103/69; PULSE 74; RESP 16; TEMP 36.1; O2SAT 96
--- NOTE | 2024-06-27 09:55 | PM.OP ---
Brief Operative Note Date of Service: 06/27/24 Pre-op diagnosis: Screening Post-op diagnosis: other (Diverticulosis) Procedure: Colonoscopy to the cecum and TI Surgeon: Thaddeus Dickinson MD Anesthesia: MAC Was an Monomer Recovery Operator used for this Procedure?: No Estimated blood loss (mL): 0 Pathology: none sent Condition: stable Disposition: PACU
[2024-06-27 10:10] VITALS: BP 132/81; PULSE 66; RESP 16; O2SAT 96
--- NOTE | 2024-06-27 10:21 | OP_ITS ---
DATE OF SERVICE: 06/27/2024 SURGEON: Thaddeus Dickinson MD INDICATIONS: The patient presents for evaluation of colorectal cancer screening and personal history of tubular adenoma of the colon. Full consent was obtained from him for this, including risks of bleeding and perforation. PREOPERATIVE DIAGNOSIS: POSTOPERATIVE DIAGNOSIS: PROCEDURE PERFORMED: Colonoscopy to cecum and terminal ileum. ESTIMATED BLOOD LOSS: COMPLICATIONS: ANESTHESIA: Monitored anesthesia care. ASSISTANTS: SPECIMENS: PREOPERATIVE DIAGNOSES: Colorectal cancer screening and personal history of tubular adenoma of the colon. POSTOPERATIVE DIAGNOSES: Colorectal cancer screening and personal history of tubular adenoma of the colon, mild sigmoid diverticulosis, and internal hemorrhoids. DESCRIPTION OF PROCEDURE: The patient was placed in the left lateral decubitus position. The digital rectal exam revealed no abnormalities. The Olympus videopediatric colonoscope was entered into the rectum and advanced easily to the cecum. Once in the cecum, I did identify normal-appearing cecal pouch with appendiceal orifice and a normal-appearing ileocecal valve. The terminal ileum was cannulated and appeared normal. Scope was withdrawn back in the colon. The entire cecum and ileocecal valve appeared normal. The scope was slowly withdrawn assessing all mucosal surfaces carefully. Preparation was excellent. I did not visualize any sign of polyps, colitis, nor angiodysplasia. There was a mild amount of sigmoid diverticulosis. In the rectum, scope was retroflexed visualizing internal hemorrhoids, but no other pathology. The rectal mucosa appeared normal. The scope was straightened and withdrawn from the patient. He tolerated the procedure well and was returned to recovery area in stable condition. IMPRESSION: 1. Diverticulosis. 2. Internal hemorrhoids. PLAN: I would recommend a repeat colonoscopy in 5 years for further screening. He will otherwise see me on a p.r.n. basis. This has been discussed with his . MD TREVOR Oakley/ALIVIA / [phone]
[2024-06-27 10:33] VITALS: BP 126/80; PULSE 79; RESP 18; TEMP 36.1; O2SAT 98
== END 2024-06-27 10:53 | disposition home or self-care (01) ==
PROVIDERS: PCP Internal Medicine; Visit Provider Internal Medicine
PROC: 0DJD8ZZ Inspection of Lower Intestinal Tract, Via Natural or Artificial Opening Endoscopic (ICD-10-PCS; CPT 45378; principal; 2024-06-27 08:40)
DX: Z12.11 Encounter for screening for malignant neoplasm of colon (principal); K57.30 Diverticulosis of large intestine without perforation or abscess without bleeding; Z86.0101 Personal history of adenomatous and serrated colon polyps; G47.30 Sleep apnea, unspecified; Z99.89 Dependence on other enabling machines and devices; K64.8 Other hemorrhoids
CPT/HCPCS: G0105; J2003; J2704

== ENCOUNTER 2024-07-22 08:43 | Outpatient (REF) | payer MEDICARE, SELFPAY ==
[2024-07-22 09:18] LABS: MANUAL DIFF FLAG NO
[2024-07-22 09:52] LABS: Basophils Absolute Auto 0.1 X10*3/uL (0.0-0.2); Basophils Percent Auto 1.1 % (0-2); Eosinophils Absolute Auto 0.5 X10*3/uL (0.0-0.4); Eosinophils Percent Auto 6.9 % (0-4); Hematocrit 41.8 % (42.0-52.0); Hemoglobin 14.3 g/dl (14.0-18.0); Imm Gran Abs Auto 0.03 X10*3/uL (0.00-0.03); Imm Gran Pct Auto 0.5 % (0.0-0.4); Lymphocytes Absolute Auto 1.5 X10*3/uL (1.2-4.9); Lymphocytes Percent Auto 23.5 % (20-40); Mean Corpuscular HGB Conc 34.2 g/dl (31.0-36.0); Mean Corpuscular Hemoglobin 32.9 pg (27.0-33.0); Mean Corpuscular Volume 96.3 fL (80.0-98.0); Mean Platelet Volume 9.4 fL (9.4-12.4); Monocytes Absolute Auto 0.5 X10*3/uL (0.1-1.2); Neutrophils Absolute Auto 3.9 x10*3/uL (2.0-8.3); Platelet Count 225 X10*3/uL (160-400); Red Blood Count 4.34 X10*6/uL (4.60-5.80); Red Cell Distribution Width 12.5 % (11.0-16.0); White Blood Count 6.5 X10*3/uL (4.8-10.8)
[2024-07-22 10:05] LABS: Estimated Average Glucose 105 mg/dL; Hemoglobin A1c % 5.3 % (<6.0); Total Hemoglobin (HGBA1C) 3623.9002 umol/L
[2024-07-22 10:43] LABS: Prostate Specific Antigen 0.68 ng/mL (<0.05-4.0)
[2024-07-22 10:48] LABS: Alanine Aminotransferase 30 U/L (0-40); Albumin Level 4.1 g/dL (3.5-5.0); Alkaline Phosphatase 65 U/L (39-117); Anion Gap 11 (12-20); Aspartate Amino Transferase 24 U/L (5-37); Bilirubin Total 0.5 mg/dL (0.0-1.0); Blood Urea Nitrogen 12 mg/dL (9-16); Calcium 9.2 mg/dL (8.4-10.2); Carbon Dioxide 26 mmol/L (22-29); Chloride 106 mmol/L (96-108); Cholesterol 156 mg/dL (<200); Estimated Glomerular Filt Rate > 60; Glucose Random 109 mg/dL (60-115); HDL Cholesterol 36 mg/dL (>40); LDL Cholesterol Calculated 96 mg/dL (<100); Potassium 4.7 mmol/L (3.3-5.1); Sodium 138 mmol/L (135-145); Total Protein 6.8 g/dL (6.5-8.0); Triglycerides 124 mg/dL (<150)
== END 2024-07-22 08:44 | disposition home or self-care (01) ==
LOC: HO.LAB 08:43
PROVIDERS: PCP Internal Medicine; Visit Provider Physician Assistant
DX: Z00.00 Encounter for general adult medical examination without abnormal findings (principal); Z12.5 Encounter for screening for malignant neoplasm of prostate; Z13.1 Encounter for screening for diabetes mellitus
CPT/HCPCS: 36415; 80053; 80061; 83036; 84153; 85025

== ENCOUNTER 2025-01-15 09:36 | Outpatient (AMB) | payer MEDICARE, SELFPAY ==
--- NOTE | 2025-01-15 09:45 | A.OFFVIS_ITS ---
Intake Visit Reasons: 1y/PVR Intake Note: Patient presents today for a 1Y follow-up/PVR Meds- Finasteride & Terazosin Allergies to Antibiotic- No Known Allergies Blood Thinner- None TODAY'S PVR:19ML'S Editor Greeting Card Required: No Accompanied by: Self / Same As Patient Allergies No Known Allergies [No Known Allergies*] Allergy (Verified 01/15/25 09:46) HPI Comments Details: Ty is a pleasant male. He is a patient of Dr Cruz. He seen for the following urologic conditions - lower urinary tract symptoms Yearly evaluation Suggested last year to cut back finasteride and reduced terazosin Did well with voiding parameters at finasteride 3 times a week and terazosin 5 mg PSA remains low Twelve month follow-up Lower urinary tract symptoms On combination therapy terazosin 10 mg and finasteride 5 mg Good response Nocturia down from 3 to 4 to 1 Happy with stream Prior therapy includes combination terazosin 10 mg and finasteride 5 mg PSA 2018 1.2, 01/15 0.5, 01/16 0.75, 01/17 0.61 Plan to review in 1 year and repeat PSA PFS Medical History (Updated 06/25/24 @ 13:55 by Jazzy Iniguez RN) BPH (benign prostatic hyperplasia) PONV (postoperative nausea and vomiting) ROM on CPAP Nocturia Weak urinary stream Surgical History (Updated 06/25/24 @ 13:54 by Jazzy Iniguez RN) Hx of rotator cuff surgery History of total left knee replacement (TKR) History of total right knee replacement (TKR) Hx of colonoscopy History of tonsillectomy History of arthroscopy of left knee History of hernia repair Family History Father Heart disease Mother Chronic obstructive pulmonary disease Social History Are you a primary acute care nursing assistant to a significant other at home: No Do you presently have visiting nurse or other home services: No Patient Tobacco Use Status: Never used Tobacco Advance Directives Date on File: 11/08/14 Current occupation: rt hand/ counter sales/ retails Review of Systems Const Denies chills and Denies fever(s) Card Reports no additional complaints and Denies syncope Resp Denies cough GI Denies abdominal pain and Denies heartburn Reports as per HPI and Denies change in libido Neuro Denies syncope Psych Denies change in libido Endo Denies change in libido Physical Exam Const General: cooperative, healthy appearing, comfortable and no acute distress Orientation/consciousness: patient oriented x3 HEENT Face and sinus: Yes normal facial exam Mouth: moist mucous membranes Neck Neck: Yes normal visual inspection, Yes full ROM and Yes trachea midline Chest Chest palpation & inspection: normal inspection of the chest Resp Effort & Inspection: normal respiratory effort, able to speak in complete sentences and no respiratory distress GI Inspection: Yes normal to inspection Back/Spine/Pelvis Cervical Spine: normal cervical lordosis Thoracic/Lumbar Spine: thoracic and lumbar spine normal to inspection Skin General skin exam: no rashes or lesions noted Neuro General: patient oriented x3, gait normal, tone normal and moves all extremities Extrem General: Yes normal to inspection and Yes capillary refill normal Office Procedures Post Void Residual Post Residual Void Post Void Residual (PVR): 19 [id number]-[id number] Void Residual by ultrasound Assessment & Plan Assessment & Plan (1) Nocturia: Code(s): R35.1 - Nocturia Category: Medical (2) Bladder outlet obstruction: Code(s): N32.0 - Bladder-neck obstruction Category: Medical Plan Twelve month follow-up Orders: Orders Prostate Specific Antigen 12 Months R35.1 - Nocturia Patient Instructions: This note is constructed using voice recognition software. While every effort has been made to ensure accuracy oil plant operator errors may have been included. Imaging studies, laboratory and physical exam results were discussed and reviewed in detail. No major barriers to patient understanding were identified. An opportunity to ask questions regarding the treatment plan was provided. All questions were answered. The patient expressed understanding and agreement with the above treatment plan. The patient is aware they should contact our office by phone for worsening of their current condition or the appearance of new urologic symptoms. Compliance is encouraged with any medications and followup testing that is ordered. It is a privilege to participate in the urologic care of your patient. If you have any questions or concerns regarding treatment for the above conditions, or other urologic issues, please do not hesitate to contact me. The office telephone contact is [phone]. Sincerely, Dr Jony Umana MD, [facility] - Urology Compassionate Specialist Care for the Genitourinary System Coding Level of Care Code Est Pt Level 4 (80748) Complex EM visit Add On G2211 Diagnoses Nocturia R35.1 Bladder outlet obstruction N32.0 CPT Codes Post Residual Void - PVR CPT Code: 05730-[id number] Void Residual by ultrasound ([id number])
--- OUTSIDE RECORDS SUMMARY | 2025-01-15 09:52 | XMS_ITS ---
Author Organization [facility] Address [address] [place] [address] Care Team Providers Care Turning Machine Set Up Operator Name Role Phone Hank Cruz Primary Care Provider Thaddeus Alvarenga [phone] Allergies No Known Allergies REASON FOR VISIT Patient presents today for a colon recall Medications Medication SIG (Take, Route, Fr equency, Duration) Notes Start Date End Date Status Finasteride Active Vitamin D3 Active Terazosin HCl 5 MG Oral for 30 Active Social History Tobacco Use: Social History Observation Description Date Details (start date - stop date) Never Smoker NA - NA Tobacco Use/Smoking Question Answer Notes Patient is a nonsmoker Alcohol Screen Question Answer Notes Did you have a drink contain ing alcohol in the past year? Yes How often did you have a dri nk containing alcohol in the past year? Monthly or less (1 point) How many drinks did you have on a typical day when you were drinking in the past year? 1 or 2 drinks (0 point) Points 1 Interpretation Negative Section Notes: Nonsmoker; no sig alcohol Problems Problem Type SNOMED Code ICD Code Onset Dates Problem Status W/U Status Risk Notes Problem History of adenomatous polyp of colon (843180935) History of adenomatous polyp of colon (Z86.010) Active confirmed Problem Colon cancer screening (732329207) Colon cancer screening (Z12.11) Active confirmed Problem Pre-procedure evaluation check (767635417) Encounter for other preprocedural examination (Z01.818) Active confirmed Vital Signs Blood pressure systolic 00 mm Hg 03/04/20 24 Blood pressure diastolic 00 mm Hg 024 Height 74 in 03/04/2024 Weight 267 lbs 03/04/2024 BMI 34.28 kg/m2 03/04/2024 Encounters Encounter Location Date Provider Diagnosis [facility] [address] [place] [address] 03/04/2024 Thaddeus Dickinson History of adenomato us polyp of colon Z86.010 ; Encounter for other preprocedural examination Z01.818 and Colon cancer screening Z12.11 Assessments Encounter Date Diagnosis (ICD Code) Assessment Notes Treatment Notes Treatment Clinical Notes Section Notes 03/04/2024 History of adenomatous polyp of colon (ICD-10 - Z86.010) Overall, Ty appears quite well. Given his previous history of tubular adenomas of the colon and his last colonoscopy being over 5 years ago, I did recommend a followup colonoscopy for further screening purposes. We did review the rationale for that regard to colon cancer prevention. Full consent was obtained for this, including risks of bleeding and perforation. The procedure will be done with monitored anesthesia care. Ty was comfortable with this plan. Thank you again for allowing me to participate in Ty's care. I shall continue to keep you advised of his progress. 03/04/2024 Encounter for other preprocedural examination (ICD-10 - Z01.818) Overall, Ty appears quite well. Given his previous history of tubular adenomas of the colon and his last colonoscopy being over 5 years ago, I did recommend a followup colonoscopy for further screening purposes. We did review the rationale for that regard to colon cancer prevention. Full consent was obtained for this, including risks of bleeding and perforation. The procedure will be done with monitored anesthesia care. Ty was comfortable with this plan. Thank you again for allowing me to participate in Ty's care. I shall continue to keep you advised of his progress. 03/04/2024 Colon cancer screening (ICD-10 - Z12.11) Overall, Ty appears quite well. Given his previous history of tubular adenomas of the colon and his last colonoscopy being over 5 years ago, I did recommend a followup colonoscopy for further screening purposes. We did review the rationale for that regard to colon cancer prevention. Full consent was obtained for this, including risks of bleeding and perforation. The procedure will be done with monitored anesthesia care. Ty was comfortable with this plan. Thank you again for allowing me to participate in Ty's care. I shall continue to keep you advised of his progress. Plan Of Treatment Future Test Test Name Order Date COLONOSCOPY 03/04/2024 Next Appt Details Follow Up: prn, Reason: Progress Notes * TY ALMANZARDOB: [birth year] (68 yo M)Acc No.[id number]:03/04/2024 Progress Notes Patient:?TY ALMANZAR Provider:?Thaddeus Dickinson MD :1955???Age:68 Y???Sex:Male Carlos e:03/04/2024 Address:[address] [place] [address] Pcp:Hank Cruz Subjective: * Chief Complaints: * ???Patient presents today fo r a colon recall * HPI: ???incontinence:? I saw Ty in the office today for evaluation of his personal history of tubular adenomas of the colon and need for colorectal cancer screening. ?I last saw Ty in August of 2018, at which time he underwent a screening colonoscopy with removal of small tubular adenomas. He presently feels very well. He enjoys a good appetite, without any significant heartburn or dysphagia. His bowel movements have been regular and without any signs of bleeding. He denies any abdominal pain, jaundice, nor unintentional weight loss. He denies any known family history of colon cancer. * ROS:?General/Constitutional:?Change in appetite?denies, denies.?Chills?denies, denies.?Fatigue?denies, denies.?Ophthalmologic:?Comments?all negative, all negative.?ENT:?Comments?all negative, all negative.?Respiratory:?hemoptysis?denies, denies.?Cough?denies, denies.?Cardiovascular:?Chest pain?denies, denies.?Orthopnea?denies, denies.?Gastrointestinal:?Comments?See HPI for details, See HPI for details.?Genitourinary:?Hematuria?denies, denies.?Dysuria?denies, denies.?Musculoskeletal:?Painful joints?denies, denies.?Weakness?denies, denies.?Skin:?Itching?denies, denies.?Rash?denies, denies.?Neurologic:?Headache?denies, denies.?Seizures?denies, denies.?Psychiatric:?Comments?all negative, all negative.? * Medical History:? * Surgical History:?Right ingi nal hernia 01/05/15Right inginal hernia 05/04/15Knee replacement 08/17/15Knee replacement 05/08/17Tonsillectomy Left inguinal hernia Right shoulder rotator cuff 12/20/2022 * Hospitalization/Major Diagno stic Procedure:?No Hospitalization History. * Family History:?Father: dece ased, diagnosed with Heart disease.?Mother: , COPD.? No known hx of colon cancer. * Social History:?Tobacco Use:?Tobacco Use/Smoking?Patient is a?nonsmoker.?Drugs/Alcohol:?Alcohol Screen?Did you have a drink containing alcohol in the past year??Yes,?How often did you have a drink containing alcohol in the past year??Monthly or less (1 point), How many drinks did you have on a typical day when you were drinking in the past year??1 or 2 drinks (0 point),?Points?1,?Interpretation?Negative.?Miscellaneous:?Marital status: . 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 ???Nonsmoker; no sig alcohol. * Medications:?TakingFinasteri de Vitamin D3 Terazosin HCl 5 MG Capsule Oral Taking Finasteride Taking Vitamin D3 Taking Terazosin HCl 5 MG Capsule Oral DiscontinuedMultivitamin Amoxicillin as needed for dentalMedication List reviewed and reconciled with the patientDiscontinued Multivitamin Discontinued Amoxicillin as needed for dentalMedication List reviewed and reconciled with the patient * Allergies:?N.K.D.A.yes[Aller gies Verified] Objective: * Vitals:?Wt: 267 lbs, Ht: 74 in, BMI:34.28 Index, BP: 00/00 mm Hg. * Examination: ???General Examination: ?GENERAL APPEARANCE:?pleasant, well nourished, well developed, in no acute distress.?EYES:?sclera non-icteric.?ORAL CAVITY:?mucosa moist.?NECK/THYROID:?no cervical lymphadenopathy, neck supple.?SKIN:?nonjaundiced, no spider angiomata.?HEART:?S1, S2 normal.?LUNGS:?clear to auscultation bilaterally.?ABDOMEN:?normal bowel sounds, no guarding or rigidity, no guarding or rigidity, no masses palpable, soft, nontender, nondistended.?EXTREMITIES:?no edema.?NEUROLOGIC:?alert and oriented.? Assessment: * Assessment: 1.?Encounter for other prepr ocedural examination - Z01.818 (Primary)?2.?History of adenomatous polyp of colon - Z86.010?3.?Colon cancer screening - Z12.11? Overall, Ty appears arely te well. Given his previous history of tubular adenomas of the colon and his last colonoscopy being over 5 years ago, I did recommend a followup colonoscopy for further screening purposes. We did review the rationale for that regard to colon cancer prevention. Full consent was obtained for this, including risks of bleeding and perforation. The procedure will be done with monitored anesthesia care. Ty was comfortable with this plan. Thank you again for allowing me to participate in Ty's care. I shall continue to keep you advised of his progress. Plan: * Treatment: 2.?Colon cancer screening?Procedure: COLONOSCOPY (Ordered for 03/04/2024)* with MACsched for 06/27/24 at 10:40 ammiralax * Procedure Codes:?3017F COLOR ECTAL CA SCREEN DOC LAL6253P TOBACCO NON-SAFIE8531 BP SCR NOT PRFRM REC REASON NOS * Preventive Medicine:? ??Counseling:?Care goal follow-up plan:?Above Normal BMI Follow-up?Giving encouragement to exercise,?BMI management provided?Yes.? * Follow Up:?prn * * Sign off status: Completed true * Provider:?Thaddeus Dickinson MD Date:? 024 Generated for Jackelin chanel/[place]ison/eTransmitting on:?01/15/2025 09:52 AM EDT History and Physical Notes * HPI (History of Present Illness) Category Sub-Category Detail Notes Category Not es incontinence I saw Ty in the office today for evaluation of his personal history of tubular adenomas of the colon and need for colorectal cancer screening. I last saw Ty in August of 2018, at which time he underwent a screening colonoscopy with removal of small tubular adenomas. He presently feels very well. He enjoys a good appetite, without any significant heartburn or dysphagia. His bowel movements have been regular and without any signs of bleeding. He denies any abdominal pain, jaundice, nor unintentional weight loss. He denies any known family history of colon cancer. Examination Category Sub-Category Detail Notes Category Not es General Examination GENERAL APPEARANCE: pleasant , well nourished, well developed, in no acute distress HEAD: EYES: sclera non-icteric EARS: NOSE: THROAT: NECK/THYROID: no cervical lymphade nopathy, neck supple HEART: S1, S2 normal CHEST: LUNGS: clear to auscultatio n bilaterally ABDOMEN: normal bowel sounds, no guarding or rigidity, no guarding or rigidity, no masses palpable, soft, nontender, nondistended NEUROLOGIC: alert and oriented SKIN: nonjaundiced, no spi mary angiomata EXTREMITIES: no edema PERIPHERAL PULSES: BACK: BREASTS: MUSCULOSKELETAL: MALE GENITOURINARY: LYMPH NODES: RECTAL EXAM: FEMALE GENITOURINARY: ORAL CAVITY: mucosa moist
--- OUTSIDE RECORDS SUMMARY | 2025-01-15 09:52 | XMS_ITS ---
Author Organization [facility] Address [address] [place] [address] Care Team Providers Care Development Team Lead Name Role Phone Hank Cruz Primary Care Provider Thaddeus Alvarenga Unavailable [phone] REASON FOR VISIT screening,hx polyps Problems Problem Type SNOMED Code ICD Code Onset Dates Problem Status W/U Status Risk Notes Problem Diverticular disease of colon (672174713) Diverticulosis of large intestine without perforation or abscess without bleeding (K57.30) Active confirmed Encounters Encounter Location Date Provider Diagnosis [facility] Outpatient [address] [place] [phone] 06/27/2024 Thaddeus Dickinson Colon cancer scree tamika Z12.11 ; Personal history of colonic polyps Z86.0100 ; Diverticulosis of large intestine without perforation or abscess without bleeding K57.30 and Other hemorrhoids K64.8 Assessments Encounter Date Diagnosis (ICD Code) Assessment Notes Treatment Notes Treatment Clinical Notes Section Notes 06/27/2024 Colon cancer screening (ICD-10 - Z12.11) 06/27/2024 Personal history of colonic polyps (ICD-10 - Z86.0100) 06/27/2024 Diverticulosis of large intestine without perforation or abscess without bleeding (ICD-10 - K57.30) 06/27/2024 Other hemorrhoids (ICD-10 - K64.8) Plan Of Treatment No Information Progress Notes * LIVIER ALMANZARDOB: [birth year] (69 yo M)Acc No.[id number]:06/27/2024 COLON WITH MAC Patient:?LIVIER ALMANZAR Provider:?Thaddeus Dickinson MD :1955???Age:68 Y???Sex:Male Carlos e:06/27/2024 Address:[address] [place], [place] [id number] Pcp:Hank Cruz Subjective: * Chief Complaints: * ???1. Screening,hx polyps. * Medical History:? Objective: * Vitals:? Assessment: * Assessment: 1.?Colon cancer screening - Z12.11 (Primary)???2.?Personal history of colonic polyps - Z86.0100???3.?Diverticulosis of large intestine without perforation or abscess without bleeding - K57.30???4.?Other hemorrhoids - K64.8??? Plan: * Treatment: * Procedure Codes:?G0105 COLOR EC CANCR SCR; COLNSCPY HI RISK, 0529F INTRVL 3+YRS PTS CLNSCP DOCD, 0528F RCMND FLW-UP 10 YRS DOCD, Modifiers: 1P * * The named appointment provid er may or may not be the originator of this progress note, and it is not deemed complete until electronically signed by the appointment provider. Sign off status: Pending * Provider:?Thaddeus Dickinson MD Date:? 024 Generated for Jackelin chanel/[place]/eTalexandreasmitting on:?01/15/2025 09:52 AM EDT
--- OUTSIDE RECORDS SUMMARY | 2025-01-15 09:52 | XMS_ITS | Patient Health Record ---
Author Organization [facility] Address [address] [place] [address] Care Team Providers Care Senior Electrical Engineer Name Role Phone Hank Cruz Primary Care Provider Thaddeus Alvarenga [phone] Allergies No Known Allergies Reason For Referral No Information Medications Medication SIG (Take, Route, Fr equency, Duration) Notes Start Date End Date Status Finasteride Active Vitamin D3 Active Terazosin HCl 5 MG Oral for 30 Active Immunizations Vaccine Route Administration Date Status Comme nts Influenza Unknown 07/09/2018 Administered Social History Tobacco Use: Social History Observation [...] Negative Section Notes: Nonsmoker; no sig alcohol Nonsmoker; no sig alcohol Problems Problem Type SNOMED Code ICD Code Onset Dates Problem Status W/U Status Risk Notes Problem Colon cancer screening (610656321) Colon cancer screening (Z12.11) Active confirmed Problem 914258171 Encounter for screening for malignant neoplasm of colon (Z12.11) Active confirmed Problem History of adenomatous polyp of colon (775183671) History of adenomatous polyp of colon (Z86.010) Active confirmed Problem Pre-procedure evaluation check (263899332) Encounter for other preprocedural examination (Z01.818) Active confirmed Problem Diverticular disease of colon (357198984) Diverticulosis of large intestine without perforation or abscess without bleeding (K57.30) Active confirmed Problem [id number] Pre-procedural examination (Z01.818) Active confirmed Vital Signs Blood pressure diastolic 00 mm Hg 03/04/2024 Height 74 in 03/04/2024 Blood pressure systolic 00 mm Hg 03/04/2024 Weight 267 lbs 03/04/2024 BMI 34.28 kg/m2 03/04/2024 Encounters Encounter Location Date Provider Diagnosis [facility] Outpatient [address], [place] [phone] 06/27/2024 Thaddeus Dickinson Colon cancer screeni ng Z12.11 ; Personal history of colonic polyps Z86.0100 ; Diverticulosis of large intestine without perforation or abscess without bleeding K57.30 and Other hemorrhoids K64.8 [facility] [address] [place] [address] 03/04/2024 Thaddeus Dickinson History of adenomato us polyp of colon Z86.010 ; Encounter for other preprocedural examination Z01.818 and Colon cancer screening Z12.11 Assessments Encounter Date Diagnosis (ICD Code) Assessment Notes Treatment Notes Treatment Clinical Notes Section Notes 06/27/2024 Colon cancer screening (ICD-10 - Z12.11) 06/27/2024 Personal history of colonic polyps (ICD-10 - Z86.0100) 03/04/2024 History of adenomatous polyp of colon [...] to keep you advised of his progress. 06/27/2024 Diverticulosis of large intestine without perforation or abscess without bleeding (ICD-10 - K57.30) 03/04/2024 Colon cancer screening (ICD-10 - Z12.11) [...] to keep you advised of his progress. 06/27/2024 Other hemorrhoids (ICD-10 - K64.8) Plan Of Treatment Future Test Test Name Order Date COLONOSCOPY 07/09/2018 COLONOSCOPY 03/04/2024 Insurance Providers Payer Name Payer Address Payer Phone Subscriber Number Group Number Insured Name Patient Relationship to Insured Coverage Start Date Coverage End Date [facility] [address] [place] [address] [id number] JENELLETY HODGES Self - patient is the insured MEDICARE OF [place] [address] [place] [address] [phone] [id number] JENELLE TY Self - patient is the insured Medical (General) History Medical History History ICD Code Sleep apnea--using a CPAP Denies OR,DM,CVA,Lung disease,renal dise ase Negative colonoscopy with Dr. Hartman at a ge 52 BPH Colonoscopy 08/2018--2 small tubular jyothi omas Surgical History Surgery Date(Month/Year) Right inginal hernia 01/05/15 Right inginal hernia 05/04/15 Knee replacement 08/17/15 Knee replacement 05/08/17 Tonsillectomy Left inguinal hernia Right shoulder rotator cuff 12/20/2022
== END 2025-01-15 10:21 | disposition home or self-care (01) ==
PROVIDERS: PCP Internal Medicine; Visit Provider Urology
DX: R35.1 Nocturia (principal); N32.0 Bladder-neck obstruction; Z13.9 Encounter for screening, unspecified
CPT/HCPCS: 99214; G2211

== ENCOUNTER → 2025-01-15 09:36 | Outpatient (BNVA) | payer MEDICARE, SELFPAY | PROVIDERS: PCP Internal Medicine; Visit Provider Urology | DX: R35.1 Nocturia (principal); N32.0 Bladder-neck obstruction | CPT/HCPCS: 51798; 81003; 99212 ==